=== PATIENT | male | born 1970 | race Caucasian/White ===

== ENCOUNTER 2017-01-15 07:26 | Emergency (ER) | payer SELFPAY ==
[2017-01-15] MEDS ORDERED: RACEPINEPHRINE HCL 2.25% NEB 0.5 ML AMPUL NEB ONE ×2 (07:46→13:46)
[2017-01-15] MEDS ORDERED: DEXAMETHASONE SOD PHOS INJ 10 MG/1 ML VIAL IV ONE (07:46)
[2017-01-15] MEDS ORDERED: NORMAL SALINE 1000 ML 1,000 ML IV ONE ×2 (07:48→08:45)
[2017-01-15] MEDS ORDERED: NORMAL SALINE 500 ML IV ONE (07:48)
[2017-01-15 07:54] LABS: ABSOLUTE BASOPHILS # (AUTO) 0.1 10^3/uL (0.0-0.2); ABSOLUTE LYMPHOCYTES (AUTO) 1.5 10^3/uL (0.5-4.7); ABSOLUTE NEUT (AUTO) 12.7 10^3/uL (1.7-8.2); BASOPHILS % (AUTO) 0.4 % (0-2); EOSINOPHILS % (AUTO) 0.3 % (0-6); HEMATOCRIT 42.7 % (37.9-51.0); HEMOGLOBIN 14.5 g/dL (13.5-17.0); HGB HCT DIFFERENCE 0.8; LYMPHOCYTES % (AUTO) 9.7 % (13-45); MEAN CORPUSCULAR HEMOGLOBIN 31.2 pg (27.0-33.4); MEAN CORPUSCULAR VOLUME 92 fl (80-97); MONOCYTES % (AUTO) 6.4 % (3-13); RED BLOOD COUNT 4.64 10^6/uL (4.35-5.55); SEGMENTED NEUTROPHILS % (AUTO) 83.2 % (42-78); WHITE BLOOD COUNT 15.3 10^3/uL (4.0-10.5)
[2017-01-15 08:08] LABS: ALANINE AMINOTRANSFERASE 36 U/L (21-72); ALBUMIN 4.5 g/dL (3.5-5.0); ALKALINE PHOSPHATASE 67 U/L (38-126); ANION GAP 16 (5-19); ASPARTATE AMINO TRANSFERASE 18 U/L (17-59); BILIRUBIN,DIRECT 0.2 mg/dL (0.0-0.4); BILIRUBIN,TOTAL 0.7 mg/dL (0.2-1.3); BLOOD UREA NITROGEN 13 mg/dL (7-20); CALCIUM 9.2 mg/dL (8.4-10.2); CARBON DIOXIDE 24 mmol/L (22-30); CHLORIDE 99 mmol/L (98-107); CREATINE KINASE 97 U/L (55-170); CREATININE RESULT 0.97 mg/dL (0.52-1.25); GLUCOSE 123 mg/dL (75-110); LIPASE 50.7 U/L (23-300); MAGNESIUM 2.2 mg/dL (1.6-2.3); POTASSIUM 4.5 mmol/L (3.6-5.0); SODIUM 139.3 mmol/L (137-145); TOTAL PROTEIN 7.1 g/dL (6.3-8.2)
[2017-01-15 08:19] LABS: CREATINE KINASE MB 1.35 ng/mL (<4.55)
[2017-01-15 08:29] LABS: TROPONIN I < 0.012 ng/mL
[2017-01-15 08:33] LABS: VENOUS BLOOD BASE EXCESS -4.2 mmol/L; VENOUS BLOOD HCO3 23.1 mmol/L (20-32); VENOUS BLOOD PCO2 50.7 mmHg (35-63); VENOUS BLOOD PH 7.28 (7.30-7.42)
[2017-01-15] MEDS ORDERED: PIPERACILLIN/TAZOBACTAM 4.5 GM VIAL IV ONE ×2 (09:31→13:45)
[2017-01-15 10:19] LABS: ARTERIAL BLOOD BASE EXCESS -5.8 mmol/L; ARTERIAL BLOOD O2 SATURATION 98.1 % (94-98)
--- NOTE | 2017-01-15 10:19 | EKG REPORT ---
SEVERITY:- ABNORMAL ECG - SINUS TACHYCARDIA NONSPECIFIC INTRAVENTRICULAR CONDUCTION DELAY : Confirmed by: Emigdio Rivers 15-Jan-2017 10:18:42
[2017-01-15] MEDS ORDERED: IPRATROPIUM/ALBUTEROL 0.5-2.5 MG/3 ML AMPUL NEB PRN (13:13)
[2017-01-15] MEDS ORDERED: DEXAMETHASONE SOD PHOS INJ 10 MG/1 ML VIAL IV PRN (13:13)
--- NOTE | 2017-01-15 14:15 | ER Document Report ---
ED General - General Chief Complaint: Shortness Of Breath Stated Complaint: SHORTNESS OF BREATH - HPI Patient complains to provider of: shortness of breath Notes: Patient coming in for evaluation shortness of breath. Upon EMS arrival patient was found to be hypoxic with some stridor and difficulty breathing wheezing patient was given nebulizer treatment and 125 mg Solu-Medrol transported to the ER. Patient upon arriving to the ER for the much better now diaphoretic however using nasal cannula now at 9798%. Patient states history of this happening prior. A quick review the patient's previous visit that showed that he was admitted to the hospital and was found to have a right-sided supraglottic mass at that time went under laryngoscope and bronchoscope by our ENT and pulmonology team however no biopsies were performed patient did end up requiring intubation for airway protection and due to impending respiratory failure and then subsequently was transferred to [facility]. Patient states his symptoms are similar today. Patient states he is feeling better at this time came into the hospital earlier needed at the last visit. Patient does smoke approximate 2 packs a day for the last 20 years. - Related Data Allergies/Adverse Reactions: No Known Allergies Allergy (Unverified 11/05/13 08:06) Past Medical History - Social History Smoking Status: Current Every Day Smoker Frequency of alcohol use: Occasional Drug Abuse: Cocaine Family History: None Pulmonary Medical History: Reports: Hx Bronchitis Denies: Hx Tuberculosis Psychiatric Medical History: Denies: Hx Depression - Immunizations Hx Diphtheria, Pertussis, Tetanus Vaccination: No Review of Systems - Review of Systems Constitutional: No symptoms reported EENT: No symptoms reported Cardiovascular: No symptoms reported Respiratory: Cough, Short of breath Gastrointestinal: No symptoms reported Genitourinary: No symptoms reported Male Genitourinary: No symptoms reported Musculoskeletal: No symptoms reported Skin: No symptoms reported Hematologic/Lymphatic: No symptoms reported Neurological/Psychological: No symptoms reported -: Yes All other systems reviewed and negative Physical Exam - Vital signs Vitals: Pulse Ox 97 01/15/17 07:39 Interpretation: Normal - General General appearance: Appears well, Alert - HEENT Head: Normocephalic, Atraumatic Eyes: Normal Pupils: PERRL Notes: Patient is talking within normal voiced her is no audible stridor patient is controlling his oral secretions and was to be protecting his airway. Examination of the posterior pharynx does not reveal any erythema or possible masses. - Respiratory Respiratory status: Respiratory distress - Mild Chest status: Nontender Breath sounds: Normal Chest palpation: Normal - Cardiovascular Rhythm: Regular Heart sounds: Normal auscultation Murmur: No - Abdominal Inspection: Normal Distension: No distension Bowel sounds: Normal Tenderness: Nontender Organomegaly: No organomegaly - Back Back: Normal, Nontender - Extremities General upper extremity: Normal inspection, Nontender, Normal color, Normal ROM , Normal temperature General lower extremity: Normal inspection, Nontender, Normal color, Normal ROM , Normal temperature, Normal weight bearing. No: Анна's sign - Neurological Neuro grossly intact: Yes Cognition: Normal Orientation: AAOx4 [place] Coma Scale Eye Opening: Spontaneous [place] Coma Scale Verbal: Oriented [place] Coma Scale Motor: Obeys Commands [place] Coma Scale Total: 15 Speech: Normal Motor strength normal: LUE, RUE, LLE, RLE Sensory: Normal - Psychological Associated symptoms: Normal affect, Normal mood - Skin Skin Temperature: Warm Skin Moisture: Dry Skin Color: Normal Course - Re-evaluation Re-evalutation: 01/15/17 14:50 CT scan of the neck was performed and does again show a right-sided supraglottic mass. Upon coxing with the radiologist states that this mass is definitely more prominent than it was 3 years ago concern for possible infectious etiologies other some surrounding fluid however more likely malignancy will need to be ruled out. This started on Decadron 10 mg every 6 Zosyn every 6 racemic epi nebs and dual nebs as needed for shortness of breath. This was initial treatment patient was given upon his last hospitalization felt this was a good place to start. Patient's case was discussed with providers at [facility] and was accepted in transfer. Patient has remained stable here in ER and is currently stable for ground transport to [facility] - Vital Signs Vital signs: Temp Pulse Resp BP Pulse Ox 98.3 F 19 142/71 H 97 01/15/17 07:41 01/15/17 13:01 01/15/17 13:01 01/15/17 13:01 - Laboratory Result Diagrams: 01/15/17 07:35 01/15/17 07:35 Laboratory results interpreted by me: 01/15/17 01/15/17 01/15/17 07:35 07:35 08:20 WBC 15.3 H Seg Neutrophils % 83.2 H Lymphocytes % 9.7 L Absolute Neutrophils 12.7 H ABG pH ABG pO2 ABG Total CO2 ABG O2 Saturation VBG pH 7.28 L Glucose 123 H 01/15/17 09:50 WBC Seg Neutrophils % Lymphocytes % Absolute Neutrophils ABG pH 7.30 L ABG pO2 123.5 H ABG Total CO2 21.6 L ABG O2 Saturation 98.1 H VBG pH Glucose Critical Care Note - Critical Care Note Total time excluding time spent on procedures (mins): 35 Comments: Multiple re-evaluations for patient with respiratory difficulty with a supraglottic mass Discharge - Discharge Clinical Impression: Supraglottic mass, Hypoxia, Respiratory distress, Tobacco abuse Condition: Good Disposition: [facility]
[2017-01-15] MEDS ORDERED: RACEPINEPHRINE HCL 2.25% NEB 0.5 ML AMPUL NEB SCH (15:00)
[2017-01-15 17:31] VITALS: BP 136/70
[2017-01-15] MEDS ORDERED: PIPERACILLIN/TAZOBACTAM 4.5 GM VIAL IV SCH (18:00)
== END 2017-01-15 15:20 | disposition short-term general hospital (02) ==
LOC: ER 07:26
DX: R22.1 Localized swelling, mass and lump, neck (principal); R09.02 Hypoxemia; R06.00 Dyspnea, unspecified; R06.02 Shortness of breath; F17.200 Nicotine dependence, unspecified, uncomplicated
CPT/HCPCS: 93005; 94640 ×2; 99285; 96361; 96375; 96365; 36415; 87040; 87070; 82553; 87880; 82803 ×2; 82550; 83690; 83735; 85025; 86308; 80053; 84484; 71020; 70491; 93010; J7030; J1100; J3490; J2543

== ENCOUNTER 2017-03-21 02:26 | Inpatient (IN) | payer SELFPAY ==
[2017-03-21] MEDS ORDERED: NORMAL SALINE 1000 ML 1,000 ML IV ONE (03:03)
[2017-03-21] MEDS ORDERED: MORPHINE SULFATE 10 MG/ML INJ IV ONE (03:04)
[2017-03-21] MEDS ORDERED: ONDANSETRON HCL INJ/PF 4 MG/2 ML SDV IV ONE (03:04)
--- NOTE | 2017-03-21 03:06 | ER Document Report ---
ED Respiratory Problem <KRISTINA ALFONSO - Last Filed: 03/21/17 06:56> - General TRAVEL OUTSIDE OF THE [place] IN LAST 30 DAYS: No <CHARO CHAVEZ - Last Filed: 03/21/17 07:58> - General Chief Complaint: Breathing Difficulty Stated Complaint: BREATHING DIFFICULTY Time Seen by Provider: 03/21/17 02:55 Notes: Patient is a 46-year-old male who comes emergency department for chief complaint of difficulty breathing. 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 Patient on steroids already. He has a history of COPD, he was reportedly wheezing initially, came by EMS, given DuoNeb treatments, wheezing has now resolved. Continues to smoke although is reduced. He denies any other medical history other than smoking and throat cancer. He is unsure of any fevers, he denies change in cough. He is pending radiation treatments which he will start in less than a week. (CHARO CHAVEZ) - Related Data Allergies/Adverse Reactions: No Known Allergies Allergy (Unverified 11/05/13 08:06) Past Medical History - General Information source: Patient - Social History Smoking Status: Current Every Day Smoker Frequency of alcohol use: None Drug Abuse: None Lives with: Spouse/Significant other Family History: None Patient has suicidal ideation: No Patient has homicidal ideation: No Pulmonary Medical History: Reports: Hx Bronchitis Denies: Hx Tuberculosis Renal/ Medical History: Denies: Hx Peritoneal Dialysis Psychiatric Medical History: Denies: Hx Depression - Immunizations Hx Diphtheria, Pertussis, Tetanus Vaccination: No <CHARO CHAVEZ - Last Filed: 03/21/17 07:58> Review of Systems - Review of Systems Constitutional: No symptoms reported EENT: See HPI Cardiovascular: See HPI Respiratory: See HPI Gastrointestinal: No symptoms reported Genitourinary: No symptoms reported Male Genitourinary: No symptoms reported Musculoskeletal: No symptoms reported Skin: No symptoms reported Hematologic/Lymphatic: No symptoms reported Neurological/Psychological: No symptoms reported <CHARO CHAVEZ - Last Filed: 03/21/17 07:58> Physical Exam - Vital signs Interpretation: Normal - General General appearance: Alert In distress: Mild - some tachypnea, no distress - HEENT Head: Normocephalic, Atraumatic Eyes: Normal Conjunctiva: Normal Extraocular movements intact: Yes Eyelashes: Normal Pupils: PERRL Sinus: Normal Nasal: Normal Mouth/Lips: Normal Mucous membranes: Normal Pharynx: Normal Neck: Other - old tracheostomy scar - Respiratory Respiratory status: Labored - mildly labored, Tachypnea. No: Respiratory distress Breath sounds: Decreased air movement, Nonproductive cough - occassional Chest palpation: Normal - Cardiovascular Rhythm: Regular. No: Tachycardia Heart sounds: Normal auscultation, S1 appreciated, S2 appreciated Murmur: No - Abdominal Inspection: Normal Distension: No distension Bowel sounds: Normal Tenderness: No: Tender - Back Back: Normal, Nontender - Extremities General upper extremity: Normal inspection, Nontender, Normal ROM, Normal strength General lower extremity: Normal inspection, Nontender, Normal ROM, Normal strength. No: Edema - Neurological Neuro grossly intact: Yes Cognition: Normal Orientation: AAOx4 [place] Coma Scale Eye Opening: Spontaneous Kamila Coma Scale Verbal: Oriented Kamila Coma Scale Motor: Obeys Commands [place] Coma Scale Total: 15 Speech: Normal Motor strength normal: LUE, RUE, LLE, RLE Sensory: Normal - Skin Skin Temperature: Warm Skin Moisture: Dry Skin Color: Other - dried sweat <CHARO CHAVEZ - Last Filed: 03/21/17 07:58> - Vital signs Vitals: Resp Pulse Ox 28 H 99 03/21/17 02:40 03/21/17 02:40 Course - Laboratory Result Diagrams: 03/21/17 04:40 03/21/17 04:40 <KRISTINA ALFONSO - Last Filed: 03/21/17 06:56> - Laboratory Result Diagrams: 03/21/17 04:40 03/21/17 04:40 <CHARO CHAVEZ - Last Filed: 03/21/17 07:58> - Re-evaluation Re-evalutation: 03/21/17 06:57 Patient is doing fine in the ER. Patient diaphoretic on BiPAP difficulty breathing. Patient has a history supraglottic mass. Quick review of the CT scan and recent venous blood gas determined patient would need to go to the OR for emergent airway protection. Call surgeon animation artist again requesting patient go to the OR. Team was assembled patient was taken to the OR emergency state cricothyrotomy versus tracheostomy. Did discuss this with it patient at bedside who stated understanding of the emergent nature of his addiction and need for surgery (KRISTINA ALFONSO) 03/21/17 Patient has hoarse vocalizations, dried sweat, has some tachypnea, has some decreased breath sounds. He is talking without difficulty, his oral airway is clear, he does have breath sounds bilaterally. Patient states that after DuoNeb he is back to his baseline. He states he wants to go home. I recommended that because patient is on steroids already, he had worsening of his symptoms tonight, that we at least give him medications, observe him, and perform general workup. Patient does agree to this. On reevaluation patient still is maintaining oxygenation, he is clinically unchanged, labs and chest x-ray are still pending, asked staff to perform this again, he is having these performed now. Patient again requests to leave, insists he feels his baseline and he wants to go home. Chest x-ray with no acute abnormality, blood work is still pending, however I reevaluated patient and he has started to have increased labored breathing, more use of accessory muscles, more tachypnea. Patient having some wheezing again, given DuoNeb's, Solu-Medrol, magnesium, will place on BiPAP. Discussed with Dr. Manzano. Will also order CT repeat and closely re-evaluate. Patient again asking to leave, informed him that he will most likely if he leaves. Giving decadron and racemic epinephrine. 03/21/17 Other the 30 minute time span since he started worsening patient continues to worsen. Brought Dr. Alfonso to bedside at 06:10. He states patient is stable but agrees patient will likely need an advanced airway. Patient has a tracheostomy scar, had this performed in 2013. Patient still speaking and confirms this. Dr. Alfonso placed call to Dr. Rausch for tracheostomy procedure. Dr. Rausch to bedside, states he would prefer performance of tracheostomy in the OR, anesthesiology has already been paged. Assisted to transfer patient on Bipap to the O.R. He is still arousable, still maintaining oxygenation, not hypotensive, borderline tachycardia. Anesthesia arrived and Dr. Rausch placed airway. 03/21/17 07:20 Spoke with Arash and Arash Luis with limited ICU beds, patient has been to [facility] several times. Pending call back from [facility]. 03/21/17 07:[address] Rausch, [facility], he has set this up already. Called [facility] back and let them know. (CHARO CHAVEZ) - Vital Signs Vital signs: Temp Pulse Resp BP Pulse Ox 97.6 F 99 20 166/114 H 94 03/21/17 05:39 03/21/17 05:39 03/21/17 05:39 03/21/17 05:39 03/21/17 05:39 - Laboratory Laboratory results interpreted by me: 03/21/17 03/21/17 03/21/17 04:40 04:40 05:04 WBC 18.3 H Seg Neutrophils % 82.7 H Lymphocytes % 9.4 L Absolute Neutrophils 15.1 H VBG pH 7.17 L* VBG pCO2 90.1 H* VBG HCO3 32.1 H Carbon Dioxide 31 H Glucose 138 H Discharge - Discharge Admitting Provider: Surgicalist Unit Admitted: OR <KRISTINA ALFONSO - Last Filed: 03/21/17 06:56> <CHARO CHAVEZ - Last Filed: 03/21/17 07:58> - Discharge Clinical Impression: Respiratory failure Qualifiers: Chronicity: acute Respiratory failure complication: unspecified whether with hypoxia or hypercapnia Qualified Code(s): J96.00 - Acute respiratory failure, unspecified whether with hypoxia or hypercapnia Disposition: ADMITTED INPATIENT
[2017-03-21 05:13] LABS: ABSOLUTE BASOPHILS # (AUTO) 0.1 10^3/uL (0.0-0.2); ABSOLUTE EOSINOPHILS # (AUTO) 0.2 10^3/uL (0.0-0.6); ABSOLUTE LYMPHOCYTES (AUTO) 1.7 10^3/uL (0.5-4.7); ABSOLUTE MONOCYTES (AUTO) 1.2 10^3/uL (0.1-1.4); ABSOLUTE NEUT (AUTO) 15.1 10^3/uL (1.7-8.2); BASOPHILS % (AUTO) 0.4 % (0-2); EOSINOPHILS % (AUTO) 0.9 % (0-6); HEMATOCRIT 49.9 % (37.9-51.0); HEMOGLOBIN 16.2 g/dL (13.5-17.0); HGB HCT DIFFERENCE -1.3; LYMPHOCYTES % (AUTO) 9.4 % (13-45); MEAN CORPUSCULAR HEMOGLOBIN 31.5 pg (27.0-33.4); MEAN CORPUSCULAR HGB CONC 32.4 g/dL (32.0-36.0); MEAN CORPUSCULAR VOLUME 97 fl (80-97); MONOCYTES % (AUTO) 6.6 % (3-13); RED BLOOD COUNT 5.15 10^6/uL (4.35-5.55); RED CELL DISTRIBUTION WIDTH 13.8 % (11.5-14.0); SEGMENTED NEUTROPHILS % (AUTO) 82.7 % (42-78); WHITE BLOOD COUNT 18.3 10^3/uL (4.0-10.5)
[2017-03-21 05:22] LABS: VENOUS BLOOD BASE EXCESS 0.2 mmol/L; VENOUS BLOOD HCO3 32.1 mmol/L (20-32)
[2017-03-21 05:40] LABS: VENOUS BLOOD PCO2 90.1 mmHg (35-63); VENOUS BLOOD PH 7.17 (7.30-7.42)
--- NOTE | 2017-03-21 05:40 | RADIOLOGY REPORT (SQ) ---
EXAM DESCRIPTION: CHEST PA/LAT COMPLETED DATE/TIME: 03/21/2017 5:23 am REASON FOR STUDY: wheezing, difficulty breathing COMPARISON: 01/15/2017 EXAM PARAMETERS: NUMBER OF VIEWS: two views TECHNIQUE: Digital Frontal and Lateral radiographic views of the chest acquired. RADIATION DOSE: NA LIMITATIONS: Blur artifact on the lateral view. FINDINGS: LUNGS AND PLEURA: Mild interstitial markings. Small left basilar atelectasis or scar. MEDIASTINUM AND HILAR STRUCTURES: No masses or contour abnormalities. HEART AND VASCULAR STRUCTURES: Slev-rc-mdxrkoel enlargement of the cardiac silhouette. BONES: No acute findings. HARDWARE: None in the chest. OTHER: No other significant finding. IMPRESSION: Small left basilar atelectasis or scar. Mild chronic interstitial lung disease pattern. TECHNICAL DOCUMENTATION: JOB ID: [id number] [employer]- All Rights Reserved
[2017-03-21] MEDS ORDERED: MAGNESIUM SULFATE/D5W 100 ML IV PRN (05:41)
[2017-03-21] MEDS ORDERED: METHYLPREDNISOLONE INJ 125 MG/2 ML SDV IV ONE (05:42)
[2017-03-21] MEDS ORDERED: IPRATROPIUM/ALBUTEROL 0.5-2.5 MG/3 ML AMPUL NEB ONE (05:42)
[2017-03-21 05:43] LABS: ALANINE AMINOTRANSFERASE 54 U/L (21-72); ALBUMIN 4.8 g/dL (3.5-5.0); ALKALINE PHOSPHATASE 57 U/L (38-126); ANION GAP 13 (5-19); ASPARTATE AMINO TRANSFERASE 29 U/L (17-59); BILIRUBIN,DIRECT 0.4 mg/dL (0.0-0.4); BILIRUBIN,TOTAL 0.8 mg/dL (0.2-1.3); BLOOD UREA NITROGEN 19 mg/dL (7-20); CALCIUM 10.1 mg/dL (8.4-10.2); CARBON DIOXIDE 31 mmol/L (22-30); CHLORIDE 99 mmol/L (98-107); CREATININE RESULT 0.81 mg/dL (0.52-1.25); GLUCOSE 138 mg/dL (75-110); POTASSIUM 4.4 mmol/L (3.6-5.0); SODIUM 142.5 mmol/L (137-145); TOTAL PROTEIN 7.9 g/dL (6.3-8.2)
[2017-03-21] MEDS ORDERED: DEXAMETHASONE SOD PHOS INJ 10 MG/1 ML VIAL IV ONE (06:16)
[2017-03-21] MEDS ORDERED: RACEPINEPHRINE HCL 2.25% NEB 0.5 ML AMPUL NEB ONE (06:16)
[2017-03-21] MEDS ORDERED: PROPOFOL INJ 200 MG/20 ML VIAL IV ONE (06:41)
[2017-03-21] MEDS ORDERED: PROPOFOL 100 ML IV ONE ×2 (07:47→08:46)
[2017-03-21 08:31] LABS: ARTERIAL BLOOD BASE EXCESS -1.4 mmol/L; ARTERIAL BLOOD O2 SATURATION 88.9 % (94-98)
[2017-03-21] MEDS ORDERED: NORMAL SALINE 500 ML with ROCURONIUM BROMIDE 500 MG IV PRN ×2 (08:40)
--- NOTE | 2017-03-21 08:41 | OPERATIVE REPORT E ---
Operative Report NAME: CED MICHAEL : 1970 AGE: 46Y DATE OF SURGERY: 03/21/2017 ROOM: 608 PREOPERATIVE DIAGNOSIS: Acute respiratory distress secondary to upper airway obstruction due to tumor. POSTOPERATIVE DIAGNOSIS: Acute respiratory distress secondary to upper airway obstruction due to tumor. PROCEDURES: 1. Emergent tracheostomy with #6 endotracheal tube. 2. Flexible pediatric bronchoscopy. 3. Critical care total time 1 hour and 20 minutes. SURGEON: RAHEEM UNDERWOOD M.D. ANESTHESIA: Lidocaine 1% plain. COMPLICATIONS: None. ESTIMATED BLOOD LOSS: 30 mL. DRAINS: None. INDICATIONS FOR PROCEDURE: The patient is a 46-year-old male, obese, smoker with a recent diagnosis of subglottic malignancy at [facility]. The patient presented to the emergency department early on 03/21/2017 complaining of shortness of breath. The patient is 1 week status post laryngoscopy and biopsy of subglottic mass at [facility] with a diagnosis of cancer. The patient was to start radiation therapy on 03/22/2017. He continues to smoke. In the emergency department, the patient's respiratory status deteriorated. He had a CT scan of the neck, which showed subglottic mass. The patient then acutely decompensated. Surgery was consulted. The patient was assessed on BiPAP and clear respiratory extremist and was taken emergently to the operating room for emergent tracheostomy. SUMMARY OF PROCEDURE: The patient was brought to the operating room maintaining his saturations on BiPAP. Anesthesia, operating room staff present. Patient was transferred to the operating room table, placed supine, and sedated minimally. The neck was prepped and draped in sterile fashion. Brief timeout conducted. Neck was extended as much as the patient could tolerate. The patient had a previous operative tracheostomy. Skin was anesthetized with 1% lidocaine plain. Approximately a 3.5 cm transverse incision was made over the previous scar. Hemostats were used to spread the subcutaneous tissues. We got down to some scar tissue and got the [place] retractors straddled on both sides of the trachea. A tracheal hook was placed into the trachea just below the larynx, perhaps at the first tracheal ring. An upside down U was made in the trachea with a #10 blade. We immediately encountered tumor. Some pieces of tumor which was lobulated were pulled out of the patient's trachea with Veena clamps. We then had an opening into the free space of the trachea. I tried to place a fenestrated #6.5 Shiley tracheostomy tube, but there was too much resistance. This was pulled out and a 6-0 endotracheal tube was inserted into position and cup inflated. Patient maintained adequate saturations above 91% throughout the procedure. The endotracheal tube was shortened to reduce airway resistance. The tube was secured to the skin with 2-0 Prolene suture, Xeroform, 4 x 4s applied. The tube was secured at 15 cm from the skin. We did perform flexible endoscopy with a pediatric fiberoptic scope and this confirmed that the endotracheal tube was what appeared to be the distal trachea. The patient was subsequently paralyzed, transferred in stable condition without loss of saturations to the intensive care unit or chest x-ray was pending. Coordination of care, including phone calls to tertiary care centers, take me approximately 30 minutes, resulted in the patient being accepted at [facility] by Dr. Mathieu Bentley of the Critical Care Service. DICTATING PHYSICIAN: RAHEEM UNDERWOOD M.D. [id number] PHY#: [id number] ID: [id number] JOB#: [id number] ACCT: [id number] cc:RAHEEM UNDERWOOD M.D. > MTDD
[2017-03-21] MEDS ORDERED: LIDOCAINE 1% INJ-PF (10 MG/ML) 30 ML SDV ONE (08:51)
--- NOTE | 2017-03-21 08:53 | RADIOLOGY REPORT (SQ) ---
EXAM DESCRIPTION: CHEST SINGLE VIEW COMPLETED DATE/TIME: 03/21/2017 8:41 am REASON FOR STUDY: s/p trach COMPARISON: 03/21/2017 earlier. FINDINGS: Single-view portable AP chest supine timed approximately 0019 hours. Trach tube in place directed down the right mainstem bronchus. This should be pulled back. Complete whiteout of the left lung. Nasogastric tube down, tip in the stomach. IMPRESSION: Abnormal trach tube, within the right mainstem bronchus. This needs to be readjusted. There is complete collapse of the left lung. TECHNICAL DOCUMENTATION: JOB ID: [id number]
--- NOTE | 2017-03-21 08:53 | RADIOLOGY REPORT (SQ) ---
EXAM DESCRIPTION: KUB/ABDOMEN (SINGLE VIEW) COMPLETED DATE/TIME: 03/21/2017 8:41 am REASON FOR STUDY: NGT placement check COMPARISON: None. FINDINGS: Single view of the upper abdomen obtained portably. Nasogastric tube with tip in the stom ach. Nonobstructive bowel gas pattern. IMPRESSION: Appropriate nasogastric tube. Please see separately dictated chest radiographs from alex[facility] e encounter. TECHNICAL DOCUMENTATION: JOB ID: [id number]
[2017-03-21] MEDS ORDERED: CEFAZOLIN 2 GM/D5W RTU 2 GM/50 ML RTUPB IV ONE (09:00)
[2017-03-21] MEDS ORDERED: PROPOFOL 100 ML IV PRN (09:07)
[2017-03-21] MEDS ORDERED: ROCURONIUM BROMIDE INJ 50 MG/5 ML VIAL IV ONE ×2 (09:15→12:02)
[2017-03-21] MEDS ORDERED: SODIUM BICARBONATE 8.4% INJ 50 MEQ/50 ML DISP.SYRIN ONE ×3 (09:21→10:00)
[2017-03-21] MEDS ORDERED: EPINEPHRINE INJ 1 MG/10 ML DISP.SYRIN ONE (09:21)
[2017-03-21] MEDS ORDERED: ATROPINE SULFATE INJ 1 MG/10 ML DISP.SYRIN IV ONE (09:21)
[2017-03-21] MEDS ORDERED: CALCIUM GLUCONATE 1000 MG/10 ML INJ IV ONE (09:51)
[2017-03-21] MEDS ORDERED: PHENYLEPHRINE HCL INJ/PF 10 MG/1 ML SDV ONE (09:53)
[2017-03-21] MEDS ORDERED: DEXTROSE 50%-WATER 25 GM/50 ML DISP.SYRIN IV ONE (09:55)
[2017-03-21] MEDS ORDERED: VASOPRESSIN INJ 20 UNIT/1 ML VIAL ONE ×2 (09:56→09:58)
--- NOTE | 2017-03-21 10:27 | EKG REPORT ---
SEVERITY:- ABNORMAL ECG - SINUS TACHYCARDIA NONSPECIFIC INTRAVENTRICULAR CONDUCTION DELAY : Confirmed by: Tirso Ibrahim MD 21-Mar-2017 10:27:19
--- NOTE | 2017-03-21 10:58 | PDOC CONSULTATION ---
Consultation Consult Date: 03/21/17 Attending physician:: SALMA LINDA Consult reason:: acute airway compromise History of Present Illness Admission Date/PCP: 03/21/17 06:45 History of Present Illness: CED MICHAEL is a 46 year old male hx of malignant tracheal mass dx at [facility] patent was awaiting XRT but had acute decompensation requiring acute tracheotomy(this was done in the O.R.).However acutely decompensated a second time in the ICU.A small and medium bronchoscopes were utilized but access and placement were difficult to assess due to diffuse spread of tumor.Surgery and Anesthesiology at bedside(using multiple intervetions and techniques.Situation remained precarious ; after 4 hrs patient subsequently coded and Past Medical History Pulmonary Medical History: Reports: Bronchitis Denies: Tuberculosis Psychiatric Medical History: Denies: Depression Social History Lives with: Spouse/Significant other Smoking Status: Current Every Day Smoker Frequency of Alcohol Use: Social Hx Recreational Drug Use: No Hx Prescription Drug Abuse: No Family History Family History: None Parental Family History Reviewed: No Children Family History Reviewed: No Sibling(s) Family History Reviewed.: No Medication/Allergy Home Medications: Amlodipine Besylate [Norvasc 5 mg Tablet] 5 mg PO QAM 03/21/17 Clonazepam [Klonopin] 0.5 mg PO BIDP PRN 03/21/17 Omeprazole 20 mg PO BID 03/21/17 Phentermine HCl [Adipex-P] 37.5 mg PO DAILY 03/21/17 Sildenafil Citrate [Sildenafil] 20 mg PO PRN PRN 03/21/17 Testosterone Cypionate [Depo-Testosterone] 200 mg IM [id number] 03/21/17 Allergies/Adverse Reactions: No Known Allergies Allergy (Unverified 11/05/13 08:06) Review of Systems ROS unobtainable: Due to endotracheal tube Physical Exam Vital Signs: Temp Pulse Resp BP Pulse Ox 96.4 F L 104 H 19 115/72 100 03/21/17 09:01 03/21/17 08:08 03/21/17 09:01 03/21/17 09:01 03/21/17 09:01 General appearance: PRESENT: no acute distress, disheveled, morbidly obese, well -developed Head exam: PRESENT: atraumatic, normocephalic Eye exam: PRESENT: conjunctiva pale Mouth exam: PRESENT: dry mucosa, tongue midline, other - new tracheostomy in place Neck exam: ABSENT: carotid bruit, JVD, lymphadenopathy, thyromegaly Respiratory exam: PRESENT: decreased breath sounds, prolonged expiratory phas Cardiovascular exam: PRESENT: RRR, +S1, +S2 GI/Abdominal exam: PRESENT: normal bowel sounds, soft. ABSENT: distended, guarding, mass, organolmegaly, rebound, tenderness Rectal exam: PRESENT: deferred Gentrourinary exam: PRESENT: indwelling catheter Extremities exam: PRESENT: +1 edema Skin exam: PRESENT: dry, warm Results Laboratory Results: 03/21/17 08:20 Carbonic Acid 1.93 H HCO3/H2CO3 Ratio 14:1 ABG pH 7.25 L ABG pCO2 64.0 H ABG pO2 65.2 L ABG HCO3 27.3 H ABG O2 Saturation 88.9 L ABG Base Excess -1.4 FiO2 70% Impressions: Chest X-Ray 03/21/17 07:45 IMPRESSION: Abnormal trach tube, within the right mainstem bronchus. This needs to be readjusted. There is complete collapse of the left lung. KUB X-Ray 03/21/17 08:29 IMPRESSION: Appropriate nasogastric tube. Please see separately dictated chest radiographs from same encounter. Assessment & Plan - Diagnosis (1) Respiratory failure Qualifiers: Chronicity: acute Respiratory failure complication: unspecified whether with hypoxia or hypercapnia Qualified Code(s): J96.00 - Acute respiratory failure, unspecified whether with hypoxia or hypercapnia Is this a current diagnosis for this admission?: YesPlan: patient
--- NOTE | 2017-03-21 11:38 | OPERATIVE REPORT E ---
Operative Report NAME: CED MICHAEL : 1970 AGE: 46Y DATE OF SURGERY: ROOM: 608 PREOPERATIVE DIAGNOSES: 1. Completely obstructing laryngeal tumor. 2. Status post emergent tracheostomy. 3. Right mainstem intubation. POSTOPERATIVE DIAGNOSES: Tumor embolization distal to endotracheal tube with loss of airway and cardiorespiratory arrest. OPERATION: 1. Manipulation of tracheostomy tube with endotracheal tube replacement. 2. Cardiopulmonary resuscitation (complete code). SURGEON: RAHEEM RUASCH M.D. ANESTHESIA: 1% lidocaine plain. COMPLICATIONS: . FINDINGS: See below. Please see previous operative note dictated by Dr. Rausch regarding the establishment of an emergent mechanical airway in the operating room at approximately 7:30 A.M. on 03/21/2017. The patient was transferred uneventfully from the operating room to the ICU where the patient remained hemodynamically stable with saturations in the 96 and 97% range on high FIO2. Followup chest x-ray post-procedure demonstrated right mainstem intubation with the tracheostomy tube, and complete white-out of the left lung. This was new compared to preop when the patient had a fairly clear left lung. Support was gathered by recruiting an additional surgeon, bending frame operator, and anesthesiologist. We elected to withdraw the tube out of the right mainstem bronchus and into the trachea to re-expand the left lung. We had flexible bronchoscopy at bedside. Patient was maintaining adequate saturations at this time. Anesthesia manned the airway from the top, and Dr. Rausch and Eun prepped and draped the neck. Previously positioned sutures and tape were removed. Based on the chest x-ray and the position of the endotracheal tube in the trachea through the operative tracheostomy, I felt that withdrawing the tube about 4 cm would be appropriate. This was, in fact, affected by Dr. Rausch. I held the tube into position manually and bending frame operator performed flexible bronchoscopy. Initially the saturations improved with this manipulation. However, endoscopically, the patient was found to have tumor at the distal end of the endotracheal tube. Multiple maneuvers were performed to manipulate the tumor off of the tip of the endotracheal tube, but were not successful. This then began a series of maneuvers to try to maintain the patient's saturations, and either dislodge the tumor or even re-position the tube back down the right mainstem bronchus. Unfortunately, due to now back pressure, massive subcutaneous emphysema resulted. Patient's face and chest blew up immediately, and this subsequently forced the endotracheal tube out of the trachea. We now began to re-explore the neck at bedside with retractors. Several attempts were made to get the endotracheal tube back into the trachea. This was very difficult due to distortion of the trachea from the previous emergent surgery, as well as tumor, as well as bleeding. Eventually we did get a replacement #6 endotracheal tube back into this, inflated the cuff, and this was done through a flexible fiberoptic bronchoscope threaded through the tracheotomy. Unfortunately, hereafter the patient never recovered in terms of his saturations, blood pressure, etc. Again, the principle problem here was mechanical loss of the airway due to obstructing tumor which had likely embolized from the proximal origination site in the larynx down into the left mainstem bronchus or distal trachea. Dr. Kam, manual control auger press operator, Eun Rausch, as well as Dr. Wise, all at bedside assisting in this exercise; code was ensued; CPR ensued; chest compressions and shocking as the patient's rhythm deteriorated. Eventually after several minutes of CPR and no clinical improvement, the code was called. He did with the sixth endotracheal tube in the trachea based on bronchoscopic confirmation during the code. Please see nursing notes for exact time of . Drs. Rausch and Billie did communicate with the patient's mother and the girlfriend in person, reviewed the events, and answered questions as best we could. DICTATING PHYSICIAN: RAHEEM RAUSCH M.D. [id number] PHY#: [id number] ID: [id number] JOB#: [id number] ACCT: [id number] cc:RAHEEM RAUSCH M.D. > [facility]ITAL[facility]uri
[2017-03-21 13:25] VITALS: BP 134/84
--- NOTE | 2017-03-30 08:59 | DEATH SUMMARY E ---
Summary NAME: CED MICHAEL : 1970 AGE: 46Y ADMITTED: 03/21/2017 : 03/21/2017 HISTORY: The patient is a 46-year-old obese white male, heavy smoker of 2 packs per day, previous operative tracheostomy, with a known supraglottic and laryngeal carcinoma, presents to the emergency department at [facility] in respiratory distress. The patient was evaluated, placed on BiPAP, and treated with racemic epinephrine and steroids. Please see his complete past medical and surgical history record in the EMR. SUMMARY OF HOSPITALIZATION: The patient was evaluated in the emergency department by the emergency room team. Patient was treated with intravenous and aerosolized medications and steroids. Patient was placed on BiPAP. He had a CT scan of the neck which confirmed his obstructing upper airway malignancy at the larynx. Surgery was consulted and the patient was immediately taken to the operating room for emergency tracheostomy. This was performed by Dr. Rausch and dictated separately. The patient was taken to the intensive care unit in guarded condition with plan to transfer him to [facility]. In the intensive care unit, the patient was found on chest x-ray following tracheostomy insertion to have the 6.5 mechanical airway ending in the right mainstem bronchus. Attempts were made to reposition the endotracheal tube by the surgical and anesthesia team; however, the patient developed massive subcutaneous emphysema due to occlusion of the mechanical airway secondary to tumor obstruction. Eventually the airway was lost and regained but the patient became hypoxic and eventually went into cardiopulmonary arrest. Patient underwent CPR and did not survive. He was pronounced at approximately 8:30 a.m. on 03/21/2017. FINAL DIAGNOSES: 1. Respiratory and subsequent cardiac arrest secondary to upper airway obstruction. 2. Known obstructing upper airway malignancy. 3. Obesity. 4. COPD secondary to heavy smoking. 5. Previous operative tracheostomy. DICTATING PHYSICIAN: RAHEEM RAUSCH M.D. [id number] PHY#: [id number] ID: [id number] JOB#: [id number] ACCT: [id number] cc:RAHEEM RAUSCH M.D. >
--- NOTE | 2017-04-20 12:22 | HISTORY AND PHYSICAL E ---
History and Physical NAME: CED MICHAEL : 1970 AGE: 46Y ADMITTED: 03/21/2017 ROOM: 608 Patient seen at the request of Dr. Mejia. CHIEF COMPLAINT: Respiratory failure. HISTORY OF PRESENT ILLNESS: The patient is a 46-year-old white male with a history of morbid obesity, heavy smoking abuse, COPD, and known supraglottic laryngeal carcinoma status post biopsy with intended treatment at [facility] in the near future. Please see his past medical and surgical history for complete record. Patient was seen in the emergency department at [facility] as well as [facility] over the last 6 months with similar symptoms of respiratory distress. In the emergency department, patient was treated medically with oxygen, racemic epi, and steroids. He had a CT scan of the neck, which confirmed an obstructing mass in his larynx. Surgery was consulted and he was immediately taken to the operating room for surgical airway. PAST MEDICAL AND SURGICAL HISTORY: As per HPI. REVIEW OF SYSTEMS: Could not be obtained. FAMILY HISTORY: Not relevant. PHYSICAL EXAMINATION: GENERAL: Patient examined in the emergency department. He is a morbidly obese male in obvious respiratory distress with a BiPAP mask in place. Saturations around 92%, heart rate 110. Patient does follow commands and phonates minimally. NECK: Very distended. There is evidence of a previous tracheostomy scar. EXTREMITIES: Upper extremities with moderate edema. Lower extremities with moderate edema. LUNGS: Stridor bilaterally. ABDOMEN: Distended. IMPRESSION: 1. Respiratory distress with eminent respiratory collapse secondary to obstructing upper respiratory malignancy. 2. Morbid obesity. 3. COPD. 4. Smoker. RECOMMENDATIONS: Patient will be transferred immediately to the operating room for emergent operative airway. His significant other is present at bedside and has been explained the plan. DICTATING PHYSICIAN: RAHEEM UNDERWOOD M.D. [id number] PHY#: [id number] ID: [id number] JOB#: [id number] ACCT: [id number] cc:RAHEEM UNDERWOOD M.D. >
== END 2017-03-21 10:02 | DRG 3 ==
LOC: ER 02:26 → EH 06:45 → ICU 07:40
PROVIDERS: ADMIT Surgery; ATTEND Surgery
PROC: 0BW10FZ Revision of Tracheostomy Device in Trachea, Open Approach (ICD-10-PCS; 2017-03-21)
PROC: 0BJ18ZZ Inspection of Trachea, Via Natural or Artificial Opening Endoscopic (ICD-10-PCS; 2017-03-21)
PROC: 5A1935Z Respiratory Ventilation, Less than 24 Consecutive Hours (ICD-10-PCS; 2017-03-21)
PROC: 0BJ08ZZ Inspection of Tracheobronchial Tree, Via Natural or Artificial Opening Endoscopic (ICD-10-PCS; 2017-03-21)
PROC: 5A12012 Performance of Cardiac Output, Single, Manual (ICD-10-PCS; 2017-03-21)
PROC: 0B110F4 Bypass Trachea to Cutaneous with Tracheostomy Device, Open Approach (ICD-10-PCS; principal; 2017-03-21 06:30)
DX: J96.00 Acute respiratory failure, unspecified whether with hypoxia or hypercapnia (principal); C33 Malignant neoplasm of trachea; J44.9 Chronic obstructive pulmonary disease, unspecified; F17.210 Nicotine dependence, cigarettes, uncomplicated; Z79.899 Other long term (current) drug therapy; Z43.0 Encounter for attention to tracheostomy
CPT/HCPCS: 320; 36415; 71010; 71020; 74000; 80053; 82803; 82962; 85025; 87040; 92950; 93005; 93010; 94002; 94640; 96365; 96375; 99285; J0171; J0461; J1100; J2270; J2405; J2704; J2930; J3475; J3490; J7030; J7040; J7620